=== PATIENT | male | born 1945 | race Caucasian/White ===

== ENCOUNTER 2016-07-01 22:27 | Inpatient (IN) | payer OTHER ==
[~2016-07-01] VITALS: Ht 175.3 cm; Wt 125.2 kg
[2016-07-01] MEDS ORDERED: SOD CHLORIDE 0.9% 1,000 ML IV STA (22:37)
[2016-07-01] MEDS ORDERED: OMEG-135 PO (22:47)
[2016-07-01] MEDS ORDERED: LISI40TA9 PO (22:47)
[2016-07-01] MEDS ORDERED: ALLO300T2 PO (22:48)
[2016-07-01] MEDS ORDERED: HYD25 PO (22:49)
[2016-07-01] MEDS ORDERED: METO-429 PO (22:49)
[2016-07-01] MEDS ORDERED: SIMV10TA PO (22:50)
[2016-07-01] MEDS ORDERED: SIMV5TAB50 PO (22:50)
[2016-07-01] MEDS ORDERED: MTF1000T PO (22:51)
[2016-07-01] MEDS ORDERED: FINA5TAB4 PO (22:52)
[2016-07-01 22:53] LABS: ADD SCAN DIFF NO
[2016-07-01] MEDS ORDERED: BIMA2.5D BOTH EYES (22:53)
[2016-07-01 22:55] LABS: BASOPHILS % 0.4 % (0.0-2.0); EOSINOPHILS % 0.2 % (0.0-7.0); HEMATOCRIT 43.6 % (42.0-52.0); HEMOGLOBIN 14.8 g/dl (14.0-18.0); LYMPHOCYTES # 1.7 10^3/ul (0.8-2.9); LYMPHOCYTES % 15.6 % (15.0-51.0); MEAN CORPUSCULAR HEMOGLOBIN 30.5 pg (29.0-33.0); MEAN CORPUSCULAR HGB CONC 33.9 g/dl (32.0-37.0); MEAN CORPUSCULAR VOLUME 89.9 fl (82.0-101.0); MEAN PLATELET VOLUME 10.9 fl (7.4-10.4); MONOCYTE # 0.5 10^3/ul (0.3-0.9); MONOCYTES % 4.6 % (0.0-11.0); NEUTROPHIL # 8.5 10^3/ul (1.6-7.5); NEUTROPHILS % 78.8 % (39.0-77.0); PLATELET COUNT 211 10^3/UL (140-415); RED BLOOD COUNT 4.85 10^6/ul (4.70-6.10); RED CELL DISTRIBUTION WIDTH 14.3 % (11.5-14.5); WHITE BLOOD COUNT 10.8 10^3/ul (4.8-10.8)
[2016-07-01] MEDS ORDERED: DILTIAZEM 25 MG INJ IV ONE (23:00)
[2016-07-01 23:23] LABS: INR 1.09; PARTIAL THROMBOPLASTIN TIME 28.1 Sec (25.0-35.0); PROTIME 14.1 Sec (12.2-14.2); PT RATIO 1.1
[2016-07-01 23:28] LABS: ANION GAP 15 (8-16); BLOOD UREA NITROGEN 15 mg/dl (7-20); CALCIUM 9.3 mg/dl (8.4-10.2); CARBON DIOXIDE 21 mmol/L (21-31); CHLORIDE 110 mmol/L (97-110); CREATININE 0.89 mg/dl (0.61-1.24); GLUCOSE 195 mg/dl (70-220); POTASSIUM 4.3 mmol/L (3.5-5.1); SODIUM 142 mmol/L (135-144)
--- NOTE | 2016-07-01 23:30 | RADRPT ---
PROCEDURE: Portable chest x-ray. CLINICAL INDICATION: Chest pain. TECHNIQUE: Portable AP view of the chest. COMPARISON: None. FINDINGS: There is minimal left basilar atelectasis. No pulmonary edema or conolidation is identified. The cardiac silhouette is enlarged. No pleural effusion is seen. There is no pneumothorax. IMPRESSION: 1. No evidence of acute cardiopulmonary disease. 2. Enlarged cardiac silhouette. RPTAT: HTAR .Ronaldo Javier MD, Date Time Electronically viewed and signed by .Ronaldo Javier MD, on 07/01/2016 23:30 .R/
[2016-07-01 23:44] LABS: TROPONIN-I < 0.012 ng/ml (0.00-0.12)
[2016-07-02] VITALS (16 sets, daily range): BP systolic 110–156; BP diastolic 68–109; PULSE 72–88; RESP 18–31; Ht 175.3 cm; Wt 125.2 kg
[2016-07-02] MEDS ORDERED: IOHEXOL 100 ML ONE (00:20)
[2016-07-02] MEDS ORDERED: SOD CHLORIDE 0.9% 100 ML ONE (00:20)
--- NOTE | 2016-07-02 01:09 | RADRPT ---
PROCEDURE: CT angiogram of the chest with contrast. CLINICAL INDICATION: Chest pain. TECHNIQUE: CT angiogram of the chest was obtained using a multi-detector high-resolution CT. Con tiguous axial images were obtained during the dynamic injection of 100 cc of Omnipaque 350 intraveno us contrast. Coronal and sagittal reformatted images were obtained. 3-D reformatted images were al so obtained. Images were reviewed on a PACS workstation. One or more of the following dose reduction techniques were used: - Automated exposure control. - Adjustment of the mA and/or kV according to patient size. - Use of iterative reconstruction technique. Exam CTD/vol = 24.40 mGy. Total exam DLP = 1052.74 mGy-cm. COMPARISON: None. FINDINGS: The main pulmonary artery followed to the segmental divisions are well opacified. There is no filli ng defect or evidence of pulmonary embolism. The heart is borderline in size. There is no pericard ial thickening or effusion. The aorta is of normal course and caliber with mild scattered atheroscl erotic calcifications. There is no evidence of aortic aneurysm or dissection. There is no evidence of chest wall mass. The visualized thyroid is unremarkable. There are no enla rged axillary lymph nodes. There are no enlarged mediastinal or hilar lymph nodes by CT criteria. There is a 6 mm subpleural nodule within the left lower lobe (image 88). There is mild bibasilar at electasis. There is no parenchymal consolidation or pleural effusion. The central tracheobronchial tree is within normal limits. There is a small right anterior pneumothorax measuring approximately 5%. There are nondisplaced fractures of the right anterolateral third through sixth ribs. There is a no ndisplaced fracture of the mid sternum with mild retrosternal hemorrhage. Limited evaluation of the upper abdomen demonstrates diffuse nodular contour of the liver consistent with cirrhosis. IMPRESSION: No evidence of pulmonary embolism or aortic dissection. Acute fracture of the mid sternum with mild retrosternal hemorrhage. Nondisplaced fractures of the right anterolateral third through sixth ribs. Small right anterior pneumothorax. Mild bibasilar atelectasis. Mild vascular calcifications reflective of atherosclerosis. Left lower lobe 6 mm subpleural nodule. Follow-up by Fleischner guidelines is recommended. Cirrhotic liver. A call report was made to Dr. Jacques at 01:07 a.m. .Surya Norman MD, MD Date Time Electronically viewed and signed by .Surya Nroman MD, MD on 07/02/2016 01:08 .T/
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
[2016-07-02] MEDS ORDERED: BISACODYL (EC) 5 MG TAB PO PRN (03:00)
[2016-07-02] MEDS ORDERED: LORAZEPAM 2 MG INJ IV PRN (03:00)
[2016-07-02] MEDS ORDERED: ACETAMINOPHEN 650MG/20.3ML CUP PO PRN (03:00)
[2016-07-02] MEDS ORDERED: DOCUSATE SODIUM 100 MG CAP PO PRN (03:00)
[2016-07-02] MEDS ORDERED: ONDANSETRON 4 MG INJ IV PRN (03:00)
[2016-07-02] MEDS ORDERED: morphine 4 MG/ML VIAL IV STA (03:09)
[2016-07-02] MEDS ORDERED: ONDANSETRON 4 MG INJ IV STA (03:10)
[2016-07-02] MEDS: METOPROLOL 50 MG TAB PO SCH ×3 (03:14→21:00)
[2016-07-02] MEDS: FAMOTIDINE 20 MG INJ IV SCH ×3 (03:15→20:59)
[2016-07-02] MEDS: morphine 2 MG INJ IV PRN ×4 (03:15→21:01)
[2016-07-02] MEDS ORDERED: GLUCAGON 1 MG INJ IM PRN (03:20)
[2016-07-02] MEDS ORDERED: GLUCOSE GEL 15 GRAM TUBE PO PRN ×2 (03:20)
[2016-07-02] MEDS ORDERED: DEXTROSE 50% 50 ML SYRINGE IV PRN ×2 (03:20)
[2016-07-02] MEDS ORDERED: GLUCOSE GEL 15 GRAM TUBE BUCCAL PRN (03:20)
[2016-07-02 05:05] LABS: ADD SCAN DIFF NO
[2016-07-02 05:10] LABS: BASOPHIL # 0.1 10^3/ul (0.0-0.1); BASOPHILS % 0.6 % (0.0-2.0); EOSINOPHILS % 0.4 % (0.0-7.0); HEMATOCRIT 39.7 % (42.0-52.0); HEMOGLOBIN 13.5 g/dl (14.0-18.0); LYMPHOCYTES # 1.7 10^3/ul (0.8-2.9); LYMPHOCYTES % 21.1 % (15.0-51.0); MEAN CORPUSCULAR HEMOGLOBIN 30.8 pg (29.0-33.0); MEAN CORPUSCULAR VOLUME 90.6 fl (82.0-101.0); MEAN PLATELET VOLUME 11.2 fl (7.4-10.4); MONOCYTE # 0.6 10^3/ul (0.3-0.9); MONOCYTES % 7.7 % (0.0-11.0); NEUTROPHIL # 5.7 10^3/ul (1.6-7.5); PLATELET COUNT 197 10^3/UL (140-415); RED BLOOD COUNT 4.38 10^6/ul (4.70-6.10); RED CELL DISTRIBUTION WIDTH 14.5 % (11.5-14.5); WHITE BLOOD COUNT 8.2 10^3/ul (4.8-10.8)
[2016-07-02 05:29] LABS: CREATINE KINASE 297 IU/L (23-200)
[2016-07-02 05:41] LABS: CALCIUM 8.9 mg/dl (8.4-10.2); CREATININE 0.72 mg/dl (0.61-1.24); MAGNESIUM 1.5 mg/dl (1.7-2.5); POTASSIUM 4.2 mmol/L (3.5-5.1)
[2016-07-02 05:44] LABS: CK-MB 4.31 ng/ml (0.0-2.4); TROPONIN-I < 0.012 ng/ml (0.00-0.12)
[2016-07-02] MEDS: INSULIN ASPART [NOVOLOG] 3 ML PEN SC SCH ×4 (07:35→21:00)
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
[2016-07-02] MEDS: FINASTERIDE 5 MG TAB PO SCH (09:14)
[2016-07-02] MEDS: ALLOPURINOL 300 MG TAB PO SCH (09:14)
[2016-07-02] MEDS: HYDROCHLOROTHIAZIDE 25 MG TAB PO SCH (09:15)
[2016-07-02] MEDS: LISINOPRIL 20 MG TAB PO SCH (09:15)
[2016-07-02] MEDS: MULTIVITAMINS 10 ML, THIAMINE 100 MG, FOLIC ACID 1 MG in SOD CHLORIDE 0.9% 1,000 ML IVPB SCH (09:21)
[2016-07-02] MEDS ORDERED: MAGNESIUM SULFATE 2 GM/50 ML 50 ML IVPB ONE (11:00)
[2016-07-02 11:35] LABS: CK-MB 2.69 ng/ml (0.0-2.4)
[2016-07-02 11:38] LABS: TROPONIN-I 20.8 ng/ml (0.00-0.12)
--- NOTE | 2016-07-02 12:42 | RADRPT ---
PROCEDURE: Chest 1 views. CLINICAL INDICATION: Shortness of breath, pneumothorax. TECHNIQUE: AP views of the chest was obtained. COMPARISON: July 01, [address] July 02, 2016 FINDINGS: The heart is large. Mild elevation right hemidiaphragm is identified. Scattered atelectasis is seen in both lungs. No consolidations are identified. Questionable, small right apical pneumothorax is observed. The osseous structures appear stable. IMPRESSION: Cardiomegaly . Questionable, small right apical pneumothorax. Pneumothorax is not as well visualized as on prior C T. Mild elevation of the right hemidiaphragm. Scattered atelectasis in both lungs. The known sternal fracture and right-sided rib fractures are not as well visualized as on prior CT. RPTAT: AA .Padilla Haywood MD, Date Time Electronically viewed and signed by .Padilla Haywood MD, on 07/02/2016 12:42 .P/
[2016-07-02] MEDS ORDERED: ATORVASTATIN 10 MG TAB PO SCH (21:00)
[2016-07-02] MEDS: CHLORDIAZEPOXIDE 25 MG CAP PO SCH (21:00)
[2016-07-02] MEDS: LATANOPROST 0.005% 2.5 ML OPH BOTH EYES SCH (21:02)
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
[2016-07-03] VITALS (22 sets, daily range): BP systolic 107–145; BP diastolic 74–96; PULSE 56–95; RESP 15–28
[2016-07-03] MEDS: INSULIN ASPART [NOVOLOG] 3 ML PEN SC SCH ×4 (07:35→20:30)
[2016-07-03] MEDS: ALLOPURINOL 300 MG TAB PO SCH (08:11)
[2016-07-03] MEDS: FINASTERIDE 5 MG TAB PO SCH (08:11)
[2016-07-03] MEDS: FAMOTIDINE 20 MG INJ IV SCH (08:11)
[2016-07-03] MEDS: CHLORDIAZEPOXIDE 25 MG CAP PO SCH ×3 (08:11→20:11)
[2016-07-03] MEDS: METOPROLOL 50 MG TAB PO SCH (08:12)
[2016-07-03] MEDS: HYDROCHLOROTHIAZIDE 25 MG TAB PO SCH (08:12)
[2016-07-03] MEDS: LISINOPRIL 20 MG TAB PO SCH (08:12)
[2016-07-03] MEDS: MULTIVITAMINS 10 ML, THIAMINE 100 MG, FOLIC ACID 1 MG in SOD CHLORIDE 0.9% 1,000 ML IVPB SCH (08:18)
--- NOTE | 2016-07-03 09:23 | PN ---
Date/Time of Note Date/Time of Note DATE: 07/03/16 TIME: 09:22 Assessment/Plan Lines/Catheters IV Catheter Type (from Nrsg): Peripheral IV Ascencio in Place (from Nrsg): No Assessment/Plan Chief Complaint/Hosp Course IMPRESSION: 1. Rib fractures. 2. Sternal fracture. 3. Small pneumothorax, which has now resolved. RECOMMENDATIONS: Pain control, pulmonary toilet discussed with the patient, all questions answered. Problems: Subjective 24 Hr Interval Summary Constitutional: improved Pain Control: mild Exam/Review of Systems Vital Signs Vitals Vital Signs Date Time Temp Pulse Resp B/P Pulse Ox O2 Delivery O2 Flow Rate FiO2 07/03/16 08:00 69 07/03/16 07:00 18 120/84 98 Nasal Cannula 3.0 07/03/16 04:00 98.1 Intake and Output 07/02/16 07/02/16 07/03/16 15:00 23:00 07:00 Intake Total 1890 ml 1300 ml 100 ml Output Total 650 ml 750 ml 725 ml Balance 1240 ml 550 ml -625 ml Exam Neck: non-tender, supple Respiratory: clear to auscultation, normal air movement Cardiovascular: nl pulses, regular rate and rhythm Gastrointestinal: nl liver, spleen, non-tender, soft Results Result Diagram: 07/02/16 0454 07/02/16 0454 HADLEY MARIA MD July 03, 2016 09:23
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
[2016-07-03] MEDS ORDERED: ASPIRIN (EC) 325 MG TAB PO ONE (10:30)
[2016-07-03 11:33] LABS: CREATINE KINASE 105 IU/L (23-200)
[2016-07-03 11:56] LABS: TROPONIN-I < 0.012 ng/ml (0.00-0.12)
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
--- NOTE | 2016-07-03 15:49 | RADRPT ---
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 Physician: YANETH LOPEZ Quality: Technically Difficult Study Procedures: Transthoracic echocardiogram with complete 2D, M-Mode, and doppler examination. Indications: Atrial Fibrillation. 2D/M Mode Doppler Measurement Value Normal Ranges Measurement Value Normal Ranges LVIDd 2D 5.2 3.5 - 5.6 cm AV Peak Diego 1.1 m/sec LVIDs 2D 3.7 2.1 - 4.1 cm AV Peak PG 4.5 mmHg LVPWd 2D 1.3 0.6 - 1.1 cm AI Peak PG 12.4 mmHg IVSd 2D 1.3 0.6 - 1.1 cm AI Peak Diego 1.8 m/sec AoR Diam 2D 2.9 2.0 - 3.7 cm AI PHT 560.3 msec EDV 2D 128.7 cm3 LVOT Peak Diego 1.0 m/sec ESV 2D 51.0 cm3 LVOT Peak PG 4.3 mmHg LA Dimen 2D 5.0 2.3 - 4.0 cm Findings Left Ventricle: Normal left ventricular systolic function. Normal left ventricular cavity size. Ejection fraction is visually estimated at 60 %. Abnormal Diastolic Function. Right Ventricle: Normal right ventricular size. Normal right ventricular systolic function. Left Atrium: There is moderate enlargement of left atrium. LA Dimension5.00 cm. Right Atrium: The right atrium is normal in size. Mitral Valve: Mild mitral leaflet calcification. Mild mitral annular calcification. Trace mitral regurgitation. Aortic Valve: Normal appearance of the aortic valve. No hemodynamically significant aortic stenosis by doppler. Mild aortic valve regurgitation. Tricuspid Valve: Normal appearance and function of the tricuspid valve with trace physiologic regurgitation. Pulmonic Valve: There is trace pulmonic regurgitation. Pericardium: Normal pericardium with no significant pericardial effusion. Aorta: Normal aortic root. IVC: Dilated IVC with respiratory collapse consistent with elevated right atrial pressure. Conclusions 1.Normal left ventricular systolic function. Normal left ventricular cavity size. Ejection fraction is visually estimated at 60 %. Abnormal Diastolic Function. 2.Normal right ventricular size. Normal right ventricular systolic function. 3.There is moderate enlargement of left atrium. 4.The right atrium is normal in size. 5.No hemodynamically significant aortic stenosis by doppler. Mild aortic valve regurgitation. 6.No significant valvular stenosis or regurgitation seen of remaining visualized valves. 7.Normal pericardium with no significant pericardial effusion. Electronically Signed By: Ten Callejas 03-Jul-2016 15:48:02 -0700 Patient Name: AUSTYN ANN Study Date: 02-Jul-2016 [id number]
[2016-07-03 18:02] LABS: TROPONIN-I 0.018 ng/ml (0.00-0.12)
[2016-07-03 18:05] LABS: CK-MB 1.33 ng/ml (0.0-2.4)
[2016-07-03] MEDS: ATORVASTATIN 20 MG TAB PO SCH (20:11)
[2016-07-03] MEDS: METOPROLOL 25 MG TAB PO SCH (20:12)
[2016-07-03] MEDS: FAMOTIDINE 20 MG TAB PO SCH (20:12)
[2016-07-03] MEDS: FISH OIL 1,000 MG CAP PO SCH (20:12)
[2016-07-03] MEDS: LATANOPROST 0.005% 2.5 ML OPH BOTH EYES SCH (21:47)
[2016-07-04] VITALS (11 sets, daily range): BP systolic 136–164; BP diastolic 74–101; PULSE 50–81; RESP 16–20
[2016-07-04] MEDS: INSULIN ASPART [NOVOLOG] 3 ML PEN SC SCH ×4 (07:55→20:36)
[2016-07-04] MEDS: ALLOPURINOL 300 MG TAB PO SCH (08:18)
[2016-07-04] MEDS: CHLORDIAZEPOXIDE 25 MG CAP PO SCH ×3 (08:18→20:35)
[2016-07-04] MEDS: FAMOTIDINE 20 MG TAB PO SCH ×2 (08:18→20:35)
[2016-07-04] MEDS: FINASTERIDE 5 MG TAB PO SCH (08:18)
[2016-07-04] MEDS: METOPROLOL 25 MG TAB PO SCH ×2 (08:18→20:35)
[2016-07-04] MEDS: FISH OIL 1,000 MG CAP PO SCH ×2 (08:18→20:35)
[2016-07-04] MEDS: LISINOPRIL 20 MG TAB PO SCH (08:19)
[2016-07-04] MEDS: MULTIVITAMINS 10 ML, THIAMINE 100 MG, FOLIC ACID 1 MG in SOD CHLORIDE 0.9% 1,000 ML IVPB SCH (08:35)
[2016-07-04] MEDS ORDERED: ASPIRIN (EC) 81 MG TAB PO SCH (09:00)
[2016-07-04 09:24] LABS: ADD SCAN DIFF NO
[2016-07-04 09:32] LABS: BASOPHIL # 0.1 10^3/ul (0.0-0.1); BASOPHILS % 0.8 % (0.0-2.0); EOSINOPHILS # 0.1 10^3/ul (0.0-0.5); EOSINOPHILS % 1.5 % (0.0-7.0); HEMATOCRIT 43.4 % (42.0-52.0); HEMOGLOBIN 14.2 g/dl (14.0-18.0); LYMPHOCYTES # 0.9 10^3/ul (0.8-2.9); LYMPHOCYTES % 13.8 % (15.0-51.0); MEAN CORPUSCULAR HEMOGLOBIN 30.1 pg (29.0-33.0); MEAN CORPUSCULAR HGB CONC 32.7 g/dl (32.0-37.0); MEAN CORPUSCULAR VOLUME 92.1 fl (82.0-101.0); MEAN PLATELET VOLUME 11.9 fl (7.4-10.4); MONOCYTE # 0.5 10^3/ul (0.3-0.9); MONOCYTES % 7.8 % (0.0-11.0); NEUTROPHILS % 75.9 % (39.0-77.0); PLATELET COUNT 166 10^3/UL (140-415); RED BLOOD COUNT 4.71 10^6/ul (4.70-6.10); RED CELL DISTRIBUTION WIDTH 14.1 % (11.5-14.5); WHITE BLOOD COUNT 6.5 10^3/ul (4.8-10.8)
[2016-07-04 09:45] LABS: ALBUMIN 3.6 g/dl (3.3-4.9)
[2016-07-04 09:46] LABS: POTASSIUM 3.5 mmol/L (3.5-5.1)
[2016-07-04 09:48] LABS: BILIRUBIN,INDIRECT 1.6 mg/dl (0-1.1); BILIRUBIN,TOTAL 1.6 mg/dl (0.2-1.3); CREATININE 0.69 mg/dl (0.61-1.24); TOTAL PROTEIN 7.2 g/dl (6.1-8.1)
[2016-07-04 09:49] LABS: CALCIUM 9.2 mg/dl (8.4-10.2); MAGNESIUM 1.5 mg/dl (1.7-2.5)
--- NOTE | 2016-07-04 10:21 | PDOCDIS ---
Discharge Instructions CONDITION Patient Condition: Stable HOME CARE INSTRUCTIONS: Special Diet: carb controlled ACTIVITY: Activity Restrictions: Slowly Increase Activity FOLLOW UP/APPOINTMENTS Appointments Please take your medications as prescribed, see your doctor in the clinic in 1 week. DIAMOND GIMENEZ July 04, 2016 10:21
[2016-07-04] MEDS ORDERED: FOLI-49 PO (10:23)
[2016-07-04] MEDS ORDERED: MULTI PO (10:23)
[2016-07-04] MEDS ORDERED: THIA100T10 PO (10:23)
[2016-07-04] MEDS ORDERED: MAGNESIUM SULFATE 2 GM/50 ML 50 ML IVPB ONE (10:30)
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
--- NOTE | 2016-07-04 12:33 | PN ---
Date/Time of Note Date/Time of Note DATE: 07/04/16 TIME: 12:32 Assessment/Plan Lines/Catheters IV Catheter Type (from Nrsg): Peripheral IV Ascencio in Place (from Nrsg): No Assessment/Plan Chief Complaint/Hosp Course IMPRESSION: 1. Rib fractures. 2. Sternal fracture. 3. Small pneumothorax, which has now resolved. RECOMMENDATIONS: Pain control, pulmonary toilet discussed with the patient, all questions answered. Problems: Subjective 24 Hr Interval Summary Constitutional: improved Pain Control: mild Exam/Review of Systems Vital Signs Vitals Vital Signs Date Time Temp Pulse Resp B/P Pulse Ox O2 Delivery O2 Flow Rate FiO2 07/04/16 12:14 68 07/04/16 11:43 97.3 20 141/95 97 07/03/16 19:39 Nasal Cannula 3.0 Intake and Output 07/03/16 07/03/16 07/04/16 15:00 23:00 07:00 Intake Total 2055 ml 250 ml Output Total 500 ml Balance 1555 ml 250 ml Exam ENMT: mucosa pink and moist, nl external ears & nose, nl lips & teeth, nl nasal mucosa & septum Neck: non-tender, supple Respiratory: clear to auscultation, normal air movement Cardiovascular: nl pulses, regular rate and rhythm Gastrointestinal: nl liver, spleen, non-tender, soft Results Result Diagram: 07/04/16 0855 07/04/16 0855 HADLEY MARIA MD July 04, 2016 12:33
[2016-07-04] MEDS: morphine 2 MG INJ IV PRN (13:29)
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
[2016-07-04] MEDS: LATANOPROST 0.005% 2.5 ML OPH BOTH EYES SCH (20:34)
[2016-07-04] MEDS: ATORVASTATIN 20 MG TAB PO SCH (20:35)
[2016-07-05] MEDS: morphine 2 MG INJ IV PRN ×2 (03:46→09:57)
[2016-07-05 06:44] VITALS: BP 151/107; PULSE 101; RESP 18
[2016-07-05 07:54] VITALS: BP 162/101; RESP 20
[2016-07-05] MEDS: INSULIN ASPART [NOVOLOG] 3 ML PEN SC SCH ×2 (08:13→12:05)
[2016-07-05] MEDS: FINASTERIDE 5 MG TAB PO SCH (08:14)
[2016-07-05] MEDS: ALLOPURINOL 300 MG TAB PO SCH (08:14)
[2016-07-05] MEDS: FAMOTIDINE 20 MG TAB PO SCH (08:14)
[2016-07-05] MEDS: LISINOPRIL 20 MG TAB PO SCH (08:15)
[2016-07-05] MEDS: METOPROLOL 25 MG TAB PO SCH (08:15)
[2016-07-05] MEDS: CHLORDIAZEPOXIDE 25 MG CAP PO SCH (09:23)
[2016-07-05] MEDS: FISH OIL 1,000 MG CAP PO SCH (09:23)
[2016-07-05] MEDS: MULTIVITAMINS 10 ML, THIAMINE 100 MG, FOLIC ACID 1 MG in SOD CHLORIDE 0.9% 1,000 ML IVPB SCH (09:24)
[2016-07-05] MEDS ORDERED: ALBUTEROL/IPRATROPIUM (NEB) 3 ML AMP HHN STA (09:32)
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
[2016-07-05 10:03] LABS: ADD SCAN DIFF NO
[2016-07-05 10:10] LABS: BASOPHILS % 0.5 % (0.0-2.0); EOSINOPHILS # 0.3 10^3/ul (0.0-0.5); EOSINOPHILS % 3.2 % (0.0-7.0); HEMATOCRIT 42.2 % (42.0-52.0); MEAN CORPUSCULAR HEMOGLOBIN 30.2 pg (29.0-33.0); MEAN CORPUSCULAR HGB CONC 33.2 g/dl (32.0-37.0); MEAN CORPUSCULAR VOLUME 91.1 fl (82.0-101.0); MEAN PLATELET VOLUME 11.5 fl (7.4-10.4); MONOCYTE # 0.6 10^3/ul (0.3-0.9); MONOCYTES % 7.1 % (0.0-11.0); NEUTROPHILS % 75.9 % (39.0-77.0); PLATELET COUNT 200 10^3/UL (140-415); RED BLOOD COUNT 4.63 10^6/ul (4.70-6.10); RED CELL DISTRIBUTION WIDTH 13.9 % (11.5-14.5); WHITE BLOOD COUNT 7.9 10^3/ul (4.8-10.8)
[2016-07-05 10:43] LABS: ALBUMIN 3.5 g/dl (3.3-4.9); ALBUMIN/GLOBULIN RATIO 1.02; BILIRUBIN,INDIRECT 1.7 mg/dl (0-1.1); BILIRUBIN,TOTAL 1.7 mg/dl (0.2-1.3); CREATININE 0.64 mg/dl (0.61-1.24); POTASSIUM 3.5 mmol/L (3.5-5.1); TOTAL PROTEIN 6.9 g/dl (6.1-8.1)
[2016-07-05 11:07] VITALS: BP 144/97; RESP 18
--- NOTE | 2016-07-07 08:42 | RADRPT ---
Vent Rate: 67 bpm RR Interval: 0 msec CO Interval: 0 msec QRS Duration: 84 msec QT Interval: 370 msec QTC Interval: 390 msec P-R-T [place]: 0 - 69 - 61 degrees Atrial fibrillation Abnormal ECG Electronically Signed By: Bob You [id number]
== END 2016-07-05 12:54 | disposition home or self-care (01) | DRG 184 ==
LOC: E/R 22:27 → ICU 07-02 02:51 → TEL 07-03 19:15 → MS2 07-04 22:52
PROVIDERS: ADMIT Family Medicine; ATTEND Family Medicine
DX: S22.20XA Unspecified fracture of sternum, initial encounter for closed fracture (principal); S22.41XA Multiple fractures of ribs, right side, initial encounter for closed fracture; M62.82 Rhabdomyolysis; J93.9 Pneumothorax, unspecified; Z68.41 Body mass index [BMI] 40.0-44.9, adult; I48.91 Unspecified atrial fibrillation; R07.9 Chest pain, unspecified; R91.1 Solitary pulmonary nodule; R73.03 Prediabetes; E78.00 Pure hypercholesterolemia, unspecified; I10 Essential (primary) hypertension; F10.10 Alcohol abuse, uncomplicated; N40.0 Benign prostatic hyperplasia without lower urinary tract symptoms; M10.9 Gout, unspecified; E66.9 Obesity, unspecified; V49.9XXA Car occupant (driver) (passenger) injured in unspecified traffic accident, initial encounter; Y92.410 Unspecified street and highway as the place of occurrence of the external cause
CPT/HCPCS: 36415; 71010; 71020; 71275; 80048; 80053; 82550; 82553; 82962; 83036; 83735; 84484; 85025; 85610; 85730; 87081; 93005; 93306; 96374; 96375; 97162; J1815; J2270; J2405; J3411; J3475; J7030; Q9967